=== PATIENT | female | born 1970 | race Caucasian/White ===

== ENCOUNTER 2017-11-16 07:52 | Emergency (ER) | payer OTHER ==
[~2017-11-16] VITALS: Ht 165.1 cm; Wt 70.3 kg
[2017-11-16 07:58] VITALS: BP 113/72
--- NOTE | 2017-11-16 08:15 | ED SKIN/ALLERGY COMPLAINT ---
History of Present Illness General Chief Complaint: General Adult Stated Complaint: RASH Source: patient, old records Exam Limitations: no limitations Vital Signs & Intake/Output Vital Signs & Intake/Output Vital Signs Date Time Temp Pulse Resp B/P B/P Pulse O2 O2 Flow FiO2 Mean Ox Delivery Rate 11/16 0758 95.8 77 18 113/72 98 Allergies Uncoded Allergies: PCN (Intermediate, HIVES 11/16/17) Reconcile Medications Oxycodone HCl/Acetaminophen (Percocet 5-325 MG Tablet) 5 MG-325 MG TABLET 1-2 TAB PO Q6P PRN PAIN Pregabalin (Lyrica) 75 MG CAPSULE 1 CAP PO BID POST HERPETIC NEURALGIA Triage Note: C/O PAINFUL RASH TO LEFT SIDE OF FACE X 5 DAYS, DXD WITH SHINGLES ON 11/13 WHILE ON VACATION IN [place], LEFT EYLID RED AND SWOLLEN. MEDS NOT HELPING. (VALCYCLOVIR,APAP WITH CODEINE, LOTEMAX EYE DROPS). Triage Nurses Notes Reviewed? yes HPI: Patient had a burning pain and rash just above her left eye that started 4 days ago. Patient was seen in a walk-in center and diagnosed with shingles and was started on Valtrex. Patient was told to take Motrin for the pain and to follow- up with an eye doctor. Patient to follow-up with the eye doctor and she was put on eyedrops. The pain was very severe so the eye doctor and also gave her a few pills of Tylenol with Codeine. Patient states she ran out of those pills and the pain is very severe. She rates the pain a 10 out of 10 and it is burning in nature. There are no aggravating or mitigating factors. There is no radiation outside of the area where the rashes. Past History Travel History Traveled to [place] past 21 day No Medical History Any Pertinent Medical History? see below for history Neurological: NONE EENT: NONE Cardiovascular: NONE Respiratory: NONE Gastrointestinal: NONE Hepatic: NONE Musculoskeletal: NONE Psychiatric: NONE Endocrine: NONE Other Medical Hx: shingles Surgical History Surgical History: non-contributory Psychosocial History What is your primary language Honduran Tobacco Use: Never used ETOH Use: occasional use Illicit Drug Use: denies illicit drug use Family History Hx Contributory? No Review of Systems Review of Systems Constitutional: Reports: no symptoms. EENTM: Reports: see HPI. Respiratory: Reports: no symptoms. Cardiovascular: Reports: no symptoms. Musculoskeletal: Reports: no symptoms. Neurological/Psychological: Reports: no symptoms. Immunologic/Allergic: Reports: no symptoms. Physical Exam Physical Exam General Appearance: well developed/nourished, alert, awake, anxious, moderate distress Eyes: Bilateral: PERRL, EOMI. Respiratory: normal breath sounds, chest non-tender, no respiratory distress, lungs clear Cardiovascular: regular rate/rhythm, normal peripheral pulses Neurologic/Psych: no motor/sensory deficits, awake, alert, normal gait, normal mood/affect Skin: rash Skin Problem Location: face Skin Problem Character: vesicular Progress Differential Diagnosis: shingles Plan of Care: PAIN CONTROL Departure Departure Disposition: HOME OR SELF CARE Condition: Stable Clinical Impression Primary Impression: Shingles Referrals: Giovani REAGAN,Fanny Whitfeild (PCP/Family) Additional Instructions: FOLLOW UP WITH YOUR EYE DOCTOR TAKE PERCOCET NEEDED FOR PAIN TAKE LYRICA PRESCRIBED RETURN IF SYMPTOMS WORSEN OR FOR ANY CONCERNS Departure Forms: Customer Survey General Discharge Information Prescriptions: Current Visit Scripts Oxycodone HCl/Acetaminophen (Percocet 5-325 MG Tablet) 1-2 TAB PO Q6P PRN PAIN #20 TAB Pregabalin (Lyrica) 1 CAP PO BID #60 CAP
[2017-11-16] MEDS ORDERED: LYRICA75 M1 PO (08:28)
[2017-11-16] MEDS ORDERED: PERCOCET 5-3251 EACH PO (08:28)
== END 2017-11-16 08:33 ==
LOC: ERH 07:52
DX: B02.9 Zoster without complications (principal)